=== PATIENT | female | born 1965 | race African-American/Black ===

== ENCOUNTER 2017-03-14 08:11 | Day surgery (SDC) | payer OTHER ==
[2017-03-09 12:18] VITALS: BMI 22.1
[2017-03-14] MEDS ORDERED: PROPOFOL 20 ML ONE (08:18)
[2017-03-14] MEDS ORDERED: LIDOCAINE HCL/PF 2% SDV 5ML VIAL ONE (08:18)
[2017-03-14 08:39] VITALS: TEMP 97.7
[2017-03-14 10:25] VITALS: BP 128/87; PULSE 81
--- NOTE | 2017-03-19 13:21 | PATH ---
Surgical Pathology Report Patient Name: NILESH ROTHMAN [facility]. Rec. #: [id number] /Age/Gender: 1965 (Age: 51) / F Account: [id number] Location: [facility]-ENDOSCOPY Taken: 03/14/2017 Received: 03/14/2017 Reported: 03/19/2017 Physicians: Vishal Resendiz M.D. Specimen(s) Received A: BX DUODENUM B: BX ANTRUM C: BX DISTAL ESOPHAGUS Clinical History Preoperative diagnosis: GERD Postoperative diagnosis: Rule out celiac disease, gastritis, GERD Final Diagnosis A. DUODENUM, BIOPSY: DUODENAL MUCOSA WITH NO PATHOLOGIC FINDINGS. Note: Features suggestive of celiac disease are not identified in this biopsy. B. ANTRUM, BIOPSY: MILD CHRONIC GASTRITIS WITH FEATURES OF REACTIVE GASTROPATHY. IMMUNOSTAIN IS NEGATIVE FOR H. PYLORI ORGANISMS. C. DISTAL ESOPHAGUS, BIOPSY: ESOPHAGEAL (SQUAMOUS) MUCOSA WITH NO PATHOLOGIC FINDINGS. NO COLUMNAR EPITHELIUM/INTESTINAL METAPLASIA IS IDENTIFIED. Electronically Signed Yuli Hurst M.D. Gross Description A. Received in formalin, labeled "duodenum" are 2 feldman, irregular portions of soft tissue measuring 0.3 and 0.4 cm. in greatest dimension. The specimens are submitted in toto in one cassette. B. Received in formalin, labeled "antrum" are 2 feldman, irregular portions of soft tissue measuring 0.2 and 0.3 cm. in greatest dimension. The specimens are submitted in toto in one cassette. C. Received in formalin, labeled "distal esophagus" is a feldman, irregular portion of soft tissue measuring 0.4 cm. in greatest dimension. The specimen is submitted in toto in one cassette. 03/15/2017 [facility]03/15/2017
== END 2017-03-14 10:46 | disposition home or self-care (01) ==
LOC: FASU-ENDO 08:11
PROVIDERS: ATTEND Internal Medicine Gastroenterology
PROC: 0DB58ZX Excision of Esophagus, Via Natural or Artificial Opening Endoscopic, Diagnostic (ICD-10-PCS; 2017-03-14)
PROC: 0DB98ZX Excision of Duodenum, Via Natural or Artificial Opening Endoscopic, Diagnostic (ICD-10-PCS; principal; 2017-03-14 09:38)
PROC: 0DB68ZX Excision of Stomach, Via Natural or Artificial Opening Endoscopic, Diagnostic (ICD-10-PCS; 2017-03-14 09:38)
DX: K29.50 Unspecified chronic gastritis without bleeding (principal); K44.9 Diaphragmatic hernia without obstruction or gangrene; R12 Heartburn
CPT/HCPCS: 88305-TC; 88342-TC

== ENCOUNTER 2018-06-07 04:55 | Day surgery (SDC) | payer OTHER ==
--- NOTE | 2018-06-05 16:41 | HP ---
[facility] - Chief Complaint Chief Complaint: Endometrial polyp History of Present Illness: Patient was noted to have an endometrial polyp while having a pelvic sonogram for fibroid uterus evaluation. 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: No: Alzheimer's, CVA, Dementia, Migraine, Multiple Sclerosis, Peripheral Neuropathy, Parkinson's, Seizure, Syncope, TIA, Vertigo, Other Cardiovascular: No: AFIB, Aneurysm, Aortic Insufficiency, Aortic Stenosis, CAD, CHF, Deep Vein Thrombosis, HTN, Hyperlipdemia, [place], Mitral Insufficiency, Mitral Stenosis, Murmur, Pulmonary Hypertension, Other Pulmonary: No: Asthma, Bronchitis, Cancer, COPD, O2 Dependent, Pneumonia, Previously Intubated, Pulmonary Embolus, Pulmonary Fibrosis, Sleep Apnea, Other Gastrointestinal: No: Ascites, Cancer, Constipation, Crohn's Disease, Diverticulitis, Diverticulosis, Esophageal Varices, Gastritis, GERD, GI Bleed, Hemorrhoids, Hiatal Hernia, Inflamatory Bowel Disease, Irritable Bowel Disease, Pancreatitis, Peptic Ulcer Disease, Ulcerative Colitis, Other Hepatobiliary: No: Cirrhosis, Cholelithiasis, Cholecystitis, Choledocholithiasis , Hepatitis A, Hepatitis B, Hepatitis C, Other Renal/: No: Renal Failure, Renal Inusuff, BPH, Cancer, Hematuria, Hemodialysis , Neurogenic Bladder, Renal Calculi, UTI, Other Reproductive: No: Ectopic , Endometriosis, Fibroids, PID, Polycystic Ovary Syndrome, Postmenopausal, Other ...LMP: 09/19/12 ...: No ...: 2 ...Para: 2 Heme/Onc: No: Anemia, B12 Deficiency, Bleeding Disorder, Cancer, Current Chemotherapy, Current Radiation Therapy, Hemochromatosis, Hypercoaguable State, Myeloproliferative Synd, Sickle Cell Disease, Sickle Cell Trait, Thrombocytopenia, Other Infectious Disease: No: AIDS, C-Diff, Herpes Zoster, HIV, MRSA, STD's, Tuberculosis, VREF, Other Musculoskeletal: No: Bursitis, Chronic low back pain, Hemiparesis, Hemiplegia, Osteoarthritis, Paraplegia, Other Rheumatology: No: Fibromyalgia, Gout, Lupus, Rheumatoid Arthritis, Sarcoidosis, Vasculitis, Other ENT: No: Allergic Rhinitis, Sinusitis, Other Endocrine: Yes: Diabetes Mellitus Additional Medical History: hypertension - Current Medications Current Medications: Home Medications Medication Instructions Recorded Amlodipine Besylate [Norvasc -] 2.5 mg PO HS 09/13/12 Pantoprazole Sodium 40 mg PO HS 03/09/17 Wellness Vitamin Packet 1 tab PO DAILY 03/09/17 Satellite Physical Exam - Physical Examination General Appearance: Well Nourished, Well Developed, Alert & Oriented x3 ENT: Clear, No Discharge, No masses Lung: Clear to auscultation Heart: Regular rate & rhythm, Normal S1, Normal S2 Breasts: Soft, Non-Tender, No masses bilaterally Abdomen: Soft, No tenderness, No CVA Extremities: No edema, No tenderness/swelling Pelvic Exam: Within normal limits External Genitalia, Within normal limits Vagina, Within normal limits Cervix, Within normal limits Uterus, Within normal limits [facility]: Intact, Alert, Oriented [facility] Impression/Plan - Impression/Plan Impression: endometrial polyp Operative Procedure: Hysteroscopy polypectomy and D/C Date to be Performed: 06/07/18
[2018-06-06 12:10] VITALS: BMI 22.3
[2018-06-07] MEDS ORDERED: DEXAMETHASONE SOD PHOSPHATE 4 MG/1 ML VIAL ONE (07:27)
[2018-06-07] MEDS ORDERED: LIDOCAINE HCL/PF 2% SDV 5ML VIAL ONE (07:27)
[2018-06-07] MEDS ORDERED: PROPOFOL 20 ML ONE (07:29)
[2018-06-07] MEDS ORDERED: MIDAZOLAM HCL 2 MG/2 ML SINGLE DOSE VIAL ONE (07:29)
[2018-06-07] MEDS ORDERED: SUCCINYLCHOLINE CHLORIDE 200 MG/10 ML VIAL ONE (07:29)
[2018-06-07] MEDS ORDERED: KETOROLAC TROMETHAMINE 30 MG/1 ML VIAL ONE (08:08)
[2018-06-07] MEDS ORDERED: ePHEDrine SULFATE 50 MG/1 ML AMPULE ONE (08:30)
--- NOTE | 2018-06-07 09:10 | OP ---
DATE OF OPERATION: 06/07/2018 PREOPERATIVE DIAGNOSIS: Endometrial polyp. POSTOPERATIVE DIAGNOSIS: Endometrial polyp. OPERATIVE PROCEDURE: Hysteroscopy, polypectomy, dilatation and curettage, endocervical curettage. SURGEON: Mando Davison MD ESTIMATED BLOOD LOSS: 2 mL. DESCRIPTION OF PROCEDURE: This patient was brought to the operating room, placed in the supine position, given MAC anesthesia, prepped and draped in the usual manner in the lithotomy position. The patient was noted to have a normal uterus, adnexa negative. A speculum was placed in the vagina, and the anterior lip of the cervix was grasped with a tenaculum. The cervix was dilated with Escudero dilators. Hysteroscopy was then performed revealing a small endometrial polyp adherent to the right lateral wall of the uterus. Using a medium size curette, the polyp was removed. This was followed by an endometrial curettage, and this was followed by an endocervical curettage. The estimated blood loss was 2 mL. The patient tolerated the procedure well. Hemostasis was good. The patient was transferred to the recovery room after the tenaculum and the speculum were removed from the vagina. The patient went to the recovery room with stable vital signs. MANDO DAVISON M.D. [id number]
[2018-06-07] MEDS ORDERED: oxyCODONE HCL 5 MG TABLET PO PRN (09:39)
[2018-06-07] MEDS ORDERED: ONDANSETRON 4 MG/2 ML VIAL IVPUSH PRN (09:39)
[2018-06-07] MEDS ORDERED: LACTATED RINGERS SOLUTION 1,000 ML IV SCH (09:45)
[2018-06-07 11:25] VITALS: PULSE 60; TEMP 97.4
[2018-06-07 12:37] VITALS: BP 111/59
--- NOTE | 2018-06-10 18:52 | PATH ---
Surgical Pathology Report Patient Name: NILESH ROTHMAN [facility]. Rec. #: [id number] /Age/Gender: 1965 (Age: 52) / F Account: [id number] Location: [facility] SURGICAL Taken: 06/07/2018 Received: 06/07/2018 Reported: 06/10/2018 Physicians: Nik Davison M.D. Specimen(s) Received A: ENDOMETRIAL CURETTINGS AND POLYP B: ENDOCERVICAL CURETTINGS Clinical History Endometrial polyp Final Diagnosis A. ENDOMETRIAL POLYP AND ENDOMETRIAL CURETTINGS, HYSTEROSCOPIC POLYPECTOMY, DILATION AND CURETTAGE: FRAGMENTS OF ENDOMETRIAL POLYP, LOWER UTERINE SEGMENT, SCANT ENDOCERVICAL TISSUE, AND BENIGN CERVICAL SQUAMOUS MUCOSA. B. ENDOCERVICAL CURETTINGS, DILATION AND CURETTAGE: SMALL FRAGMENT OF BENIGN CERVICAL SQUAMOUS MUCOSA. Electronically Signed Norma Styles M.D. Gross Description A. Received in formalin labeled "endometrial polyps and curettings," is a 1.2 x 1.0 x 0.3 cm feldman, polypoid portion of soft tissue admixed with a 0.9 x 0.5 x 0.2 cm aggregate of feldman soft tissue fragments. The specimen is entirely submitted in one cassette. B. Received in formalin labeled "endocervical curettings," is a 0.2 x 0.1 x 0.1 cm aggregate of feldman soft tissue fragments. The formalin is filtered and the specimen is entirely submitted in one cassette. /06/08/201806/08/2018
== END 2018-06-07 12:45 | disposition home or self-care (01) ==
LOC: JASU-SURG 04:55
PROVIDERS: ATTEND Obstetrics & Gynecology
PROC: 0UJD8ZZ Inspection of Uterus and Cervix, Via Natural or Artificial Opening Endoscopic (ICD-10-PCS; 2018-06-07)
PROC: 0UB97ZX Excision of Uterus, Via Natural or Artificial Opening, Diagnostic (ICD-10-PCS; principal; 2018-06-07 08:00)
PROC: 0UDB7ZX Extraction of Endometrium, Via Natural or Artificial Opening, Diagnostic (ICD-10-PCS; 2018-06-07 08:00)
DX: N84.0 Polyp of corpus uteri (principal)
CPT/HCPCS: 36415; 84703; 86850; 86900; 86901; 88305-TC; 94760

== ENCOUNTER 2018-07-08 07:22 | Day surgery (SDC) | payer OTHER ==
[2018-07-04 15:52] VITALS: BMI 21.9
[2018-07-08] MEDS ORDERED: PROPOFOL 20 ML ONE ×6 (07:25→08:04)
[2018-07-08 07:45] VITALS: TEMP 98.2
[2018-07-08] MEDS ORDERED: LIDOCAINE HCL/PF 2% SDV 5ML VIAL ONE (08:04)
[2018-07-08 09:44] VITALS: BP 112/72; PULSE 60
== END 2018-07-08 09:45 | disposition home or self-care (01) ==
LOC: FASU 07:22
PROVIDERS: ATTEND Internal Medicine Gastroenterology
PROC: 0DJD8ZZ Inspection of Lower Intestinal Tract, Via Natural or Artificial Opening Endoscopic (ICD-10-PCS; principal; 2018-07-08 08:00)
DX: Z86.010 Personal history of colon polyps (principal)

== ENCOUNTER → 2021-05-19 | Day surgery (SDC) | payer OTHER | END | disposition home or self-care (01) | LOC: JRADIR 09:25 | PROVIDERS: ATTEND Internal Medicine Endocrinology, Diabetes & Metabolism | PROC: 0G9G3ZX Drainage of Left Thyroid Gland Lobe, Percutaneous Approach, Diagnostic (ICD-10-PCS; principal; 2021-05-19) | DX: E04.1 Nontoxic single thyroid nodule (principal) | CPT/HCPCS: 10005; 76942; 88173; 88305-TC ==